=== PATIENT | male | born 1940 | race Caucasian/White ===

== ENCOUNTER 2016-05-11 11:59 | Emergency (ER) | payer MEDICARE, BC ==
[2016-05-11 12:05] VITALS: BP 145/77
--- NOTE | 2016-05-11 14:47 | ED ---
Lower Extremity - HPI Summary HPI Summary: 75 M presents with right heel pain and swelling since this morning. He states that he had a fracture many years ago and he often gets swelling and pain in his foot that is relieved with a cortisone shot. The last episode when that occurs was 5 years ago. He states he was on her feet more this weekend. He denies any trauma to the area. He denies any numbness or tingling. He is not on any blood thinners and does not have a history of clots. He denies any history of gout. He denies any fever, spreading redness, pus, or calf pain. - History of Current Complaint Chief Complaint: EDExtremityLower Stated Complaint: RIGHT FOOT INJURY Time Seen by Provider: 05/11/16 14:39 Pain Intensity: 6 - Allergies/Home Medications Allergies/Adverse Reactions: Allergies Allergy/AdvReac Type Severity Reaction Status Date / Time No Known Allergies Allergy Verified 05/11/16 12:04 PMH/Surg Hx/FS Hx/Imm Hx Endocrine/Hematology History: Denies: Hx Anticoagulant Therapy Cardiovascular History: Reports: Hx Hypertension Infectious Disease History: No Infectious Disease History: Denies: Traveled Outside the [place] in Last 30 Days - Family History Known Family History: Positive: Hypertension - Social History Alcohol Use: Occasionally Substance Use Type: Reports: None Smoking Status (MU): Unknown if Ever Smoked Review of Systems Negative: Fever Negative: Chest Pain Negative: Shortness Of Breath Positive: Myalgia - right heel pain All Other Systems Reviewed And Are Negative: Yes Physical Exam Triage Information Reviewed: Yes Vital Signs On Initial Exam: Initial Vitals Temp Pulse Resp BP Pulse Ox 98.0 F 79 15 145/77 100 05/11/16 12:01 05/11/16 12:01 05/11/16 12:01 05/11/16 12:01 05/11/16 12:01 Vital Signs Reviewed: Yes Skin: Positive: Warm Head/Face: Positive: Normal Head/Face Inspection Eyes: Positive: Normal, Conjunctiva Clear Respiratory/Lung Sounds: Positive: Clear to Auscultation, Breath Sounds Present Cardiovascular: Positive: Normal, RRR Musculoskeletal: Positive: Strength/ROM Intact - of right toes, ankle, Edema Right - foot present, Other - no erythema, capillary refill <2 secs, sensation grossly intact, tender to palpation over heel, good pulses Diagnostics - Vital Signs Vital Signs Temp Pulse Resp BP Pulse Ox 05/11/16 12:01 98.0 F 79 15 145/77 100 - Laboratory Lab Statement: Any lab studies that have been ordered have been reviewed, and results considered in the medical decision making process. Lower Extremity Course/Dx - Course Course Of Treatment: 75 M presents with right heel pain since this morning. He states he had a fracture years ago and when he uses his foot too much he gets well. No sign of cellulitis, septic arthritis, does not have calf pain so do not suspect DVT, no history of gout, has full ROM and no trauma, would like cortisone shot, explained that do not do coritsone shots out of the ER: can give referral to ortho and follow up with primary and patient became visible upset and got up and left, offered to give pain medication in meantime but patient refused. advised to use ibuprofen/tyenlol and ice and elevate - Diagnoses Differential Diagnosis/HQI/PQRI: Positive: Contusion, Fracture (Closed), Sprain , Strain Provider Diagnoses: Pain of right heel Discharge - Discharge Plan Condition: Good Disposition: HOME
== END 2016-05-11 14:53 | disposition home or self-care (01) ==
LOC: ED 11:59
DX: M79.671 Pain in right foot (principal)
CPT/HCPCS: 99282

== ENCOUNTER 2019-12-06 14:51 | Inpatient (IN) ==
[2019-12-06] MEDS ORDERED: Ondansetron 4 mg VIAL 2 MG/ML 2 ml VIAL IV PRN (15:46)
[2019-12-06 16:40] LABS: ABS Eosinophils 0.1 10^3/ul (0-0.6); ABS Lymphocytes 0.9 10^3/ul (1.0-4.8); ABS Monocytes 0.6 10^3/ul (0-0.8); ABS Neutrophils 3.8 10^3/ul (1.5-7.7); Eosinophil % 1.1 %; Hematocrit 40 % (42-52); Hemoglobin 13.6 g/dL (14.0-18.0); Lymphocyte % 16.6 %; Mean Corpuscular HGB Conc 34 g/dL (31-36); Mean Corpuscular Hemoglobin 31 pg (27-31); Mean Corpuscular Volume 91 fL (80-94); Mean Platelet Volume 7.2 fL (7.4-10.4); Platelet Count 179 10^3/uL (150-450); Red Blood Count 4.38 10^6 /uL (4.18-5.48); Red Cell Distribution Width 16 % (10-15); White Blood Count 5.4 10^3/uL (3.5-10.8)
[2019-12-06 16:51] LABS: Albumin 3.6 g/dL (3.2-5.2); Potassium 3.6 mmol/L (3.5-5.0); Total Bilirubin 0.8 mg/dL (0.2-1.0)
[2019-12-06 16:57] LABS: C Reactive Protein 106.53 mg/L (<8.01); EGFR African American 67.1 (>60); EGFR Non-African American 55.4 (>60); Globulin 3.7 g/dL (2-4); Total Protein 7.3 g/dL (6.4-8.9)
[2019-12-06] MEDS ORDERED: Iodixanol (CONTRAST) 320 MG/ML 100 ML SDV IV ONE (17:02)
[2019-12-06] MEDS: Enoxaparin 40 MG/0.4 ML SYR SUBCUT SCH (18:34)
[2019-12-06 19:53] LABS: Urine Appearance Clear; Urine Bilirubin Negative (Negative); Urine Blood 2+ (Negative); Urine Color Yellow; Urine Glucose Negative (Negative); Urine Ketones Negative (Negative); Urine Nitrite Negative (Negative); Urine Protein 1+(30 mg/dL) (Negative); Urine Urobilinogen Negative (Negative)
[2019-12-06 20:12] LABS: Urine Bacteria Absent (Absent); Urine Red Blood Cell 1+(3-5/hpf) (Absent); Urine White Blood Cell Trace(0-5/hpf) (Absent)
[2019-12-06] MEDS: Ampicillin ADVAN 2 GM in NS 0.9% 100 ml BAG 100 ML IVPB SCH (20:13)
[2019-12-06 20:40] LABS: Urine Specific Gravity > 1.059 (1.010-1.030)
[2019-12-07] MEDS: Ampicillin ADVAN 2 GM in NS 0.9% 100 ml BAG 100 ML IVPB SCH ×5 (01:00→23:40)
[2019-12-07] MEDS ORDERED: Ampicillin ADVAN 2 GM in NS 0.9% 100 ml BAG 100 ML IVPB SCH ×2 (06:00→09:30)
[2019-12-07 09:13] LABS: Hematocrit 35 % (42-52); Hemoglobin 12.3 g/dL (14.0-18.0); Mean Corpuscular HGB Conc 35 g/dL (31-36); Mean Corpuscular Hemoglobin 31 pg (27-31); Mean Corpuscular Volume 90 fL (80-94); Mean Platelet Volume 7.3 fL (7.4-10.4); Platelet Count 149 10^3/uL (150-450); Red Blood Count 3.93 10^6 /uL (4.18-5.48); Red Cell Distribution Width 16 % (10-15); White Blood Count 5.9 10^3/uL (3.5-10.8)
[2019-12-07 09:27] LABS: BUN/Creatinine Ratio 15.9 (8-20); C Reactive Protein 90.86 mg/L (<8.01); Calcium 8.5 mg/dL (8.6-10.3); EGFR African American 75.4 (>60); EGFR Non-African American 62.3 (>60); Magnesium 1.9 mg/dL (1.9-2.7); Potassium 4.1 mmol/L (3.5-5.0)
[2019-12-07 10:32] LABS: ABS Eosinophils 0.1 10^3/ul (0-0.6); ABS Lymphocytes 1.1 10^3/ul (1.0-4.8); ABS Monocytes 0.9 10^3/ul (0-0.8); ABS Neutrophils 3.8 10^3/ul (1.5-7.7); Eosinophil % 1.8 %; Lymphocyte % 18.1 %
[2019-12-07] MEDS ORDERED: fentaNYL 100 mcg/2 ml 50 MCG/ML VIAL ONE (13:04)
[2019-12-07] MEDS ORDERED: Midazolam 5 mg/5 ml VIAL 1 mg/ml 5 ml VIAL (5 mg) ONE (13:04)
[2019-12-07] MEDS ORDERED: Flumazenil 0.5 mg/5 ml 0.1 MG/ML 5 ml VIAL ONE (13:05)
[2019-12-07] MEDS ORDERED: Naloxone 0.4 mg VIAL 0.4 mg/ml 1 ml VIAL ONE (13:05)
[2019-12-07] MEDS: Enoxaparin 40 MG/0.4 ML SYR SUBCUT SCH (15:48)
[2019-12-07] MEDS ORDERED: cefTRIAXone 2 GM ADDV.VIAL 2 GM in NS 0.9% 100 ml BAG 100 ML IV SCH (20:00)
[2019-12-07] MEDS: cefTRIAXone 1 gm/50 mL NS BAG 1 GM/50 ML BAG IVPB SCH (20:32)
[2019-12-08] MEDS: Ampicillin ADVAN 2 GM in NS 0.9% 100 ml BAG 100 ML IVPB SCH ×5 (04:03→20:00)
[2019-12-08 06:00] LABS: ABS Basophils 0.1 10^3/ul (0-0.2); ABS Eosinophils 0.2 10^3/ul (0-0.6); ABS Lymphocytes 1.3 10^3/ul (1.0-4.8); ABS Monocytes 0.7 10^3/ul (0-0.8); ABS Neutrophils 3.5 10^3/ul (1.5-7.7); Eosinophil % 2.8 %; Hematocrit 36 % (42-52); Hemoglobin 12.3 g/dL (14.0-18.0); Lymphocyte % 22.3 %; Mean Corpuscular HGB Conc 35 g/dL (31-36); Mean Corpuscular Hemoglobin 31 pg (27-31); Mean Corpuscular Volume 89 fL (80-94); Mean Platelet Volume 7.4 fL (7.4-10.4); Nucleated Red Blood Cells % 0.1; Platelet Count 161 10^3/uL (150-450); Red Cell Distribution Width 16 % (10-15); White Blood Count 5.6 10^3/uL (3.5-10.8)
[2019-12-08 06:16] LABS: BUN/Creatinine Ratio 16.2 (8-20); Calcium 8.6 mg/dL (8.6-10.3); EGFR African American 87.8 (>60); EGFR Non-African American 72.6 (>60); Potassium 3.6 mmol/L (3.5-5.0)
[2019-12-08] MEDS: cefTRIAXone 1 gm/50 mL NS BAG 1 GM/50 ML BAG IVPB SCH (08:12)
[2019-12-08] MEDS: Enoxaparin 40 MG/0.4 ML SYR SUBCUT SCH (16:46)
[2019-12-08] MEDS: cefTRIAXone 2 GM ADDV.VIAL 2 GM in NS 0.9% 100 ml BAG 100 ML IV SCH (22:34)
[2019-12-09] MEDS: Ampicillin ADVAN 2 GM in NS 0.9% 100 ml BAG 100 ML IVPB SCH ×5 (01:23→16:38)
[2019-12-09 06:59] LABS: ABS Eosinophils 0.1 10^3/ul (0-0.6); ABS Lymphocytes 0.9 10^3/ul (1.0-4.8); ABS Monocytes 0.6 10^3/ul (0-0.8); ABS Neutrophils 5.7 10^3/ul (1.5-7.7); Eosinophil % 1.8 %; Hematocrit 35 % (42-52); Hemoglobin 12.3 g/dL (14.0-18.0); Mean Corpuscular HGB Conc 36 g/dL (31-36); Mean Corpuscular Hemoglobin 32 pg (27-31); Mean Corpuscular Volume 89 fL (80-94); Mean Platelet Volume 7.4 fL (7.4-10.4); Platelet Count 179 10^3/uL (150-450); Red Blood Count 3.89 10^6 /uL (4.18-5.48); Red Cell Distribution Width 16 % (10-15); White Blood Count 7.4 10^3/uL (3.5-10.8)
[2019-12-09 07:19] LABS: BUN/Creatinine Ratio 14.5 (8-20); Calcium 8.8 mg/dL (8.6-10.3); EGFR African American 72.4 (>60); EGFR Non-African American 59.8 (>60); Potassium 3.9 mmol/L (3.5-5.0)
[2019-12-09] MEDS: cefTRIAXone 2 GM ADDV.VIAL 2 GM in NS 0.9% 100 ml BAG 100 ML IV SCH (09:34)
[2019-12-09 16:13] VITALS: BP 119/77
[2019-12-09] MEDS: Enoxaparin 40 MG/0.4 ML SYR SUBCUT SCH (16:42)
== END 2019-12-09 18:30 | disposition swing bed (61) | DRG 288 ==
LOC: ED 14:51 → MED 15:46
PROVIDERS: ADMIT Internal Medicine; ATTEND Internal Medicine

== ENCOUNTER 2019-12-09 18:19 | Inpatient (IN) ==
[2019-12-09] MEDS ORDERED: Ondansetron 4 mg VIAL 2 MG/ML 2 ml VIAL IV PRN (19:19)
[2019-12-09] MEDS: Ampicillin ADVAN 2 GM in NS 0.9% 100 ml BAG 100 ML IVPB SCH (20:31)
[2019-12-09] MEDS: cefTRIAXone 2 GM ADDV.VIAL 2 GM in NS 0.9% 100 ml BAG 100 ML IV SCH (22:24)
[2019-12-09] MEDS: Mometasone 220 MCG MDI INH SCH (23:27)
[2019-12-10] MEDS: Ampicillin ADVAN 2 GM in NS 0.9% 100 ml BAG 100 ML IVPB SCH ×6 (01:07→21:33)
[2019-12-10] MEDS: cefTRIAXone 2 GM ADDV.VIAL 2 GM in NS 0.9% 100 ml BAG 100 ML IV SCH ×2 (10:42→22:47)
[2019-12-10] MEDS: Enoxaparin 40 MG/0.4 ML SYR SUBCUT SCH (16:41)
[2019-12-10] MEDS: Mometasone 220 MCG MDI INH SCH (17:21)
[2019-12-11] MEDS: Ampicillin ADVAN 2 GM in NS 0.9% 100 ml BAG 100 ML IVPB SCH ×6 (01:23→20:48)
[2019-12-11] MEDS: cefTRIAXone 2 GM ADDV.VIAL 2 GM in NS 0.9% 100 ml BAG 100 ML IV SCH ×2 (09:37→21:36)
[2019-12-11] MEDS: Enoxaparin 40 MG/0.4 ML SYR SUBCUT SCH (17:02)
[2019-12-11] MEDS: Mometasone 220 MCG MDI INH SCH (19:46)
[2019-12-12] MEDS: Ampicillin ADVAN 2 GM in NS 0.9% 100 ml BAG 100 ML IVPB SCH ×6 (00:36→21:19)
[2019-12-12] MEDS: cefTRIAXone 2 GM ADDV.VIAL 2 GM in NS 0.9% 100 ml BAG 100 ML IV SCH ×2 (10:20→21:55)
[2019-12-12] MEDS: Enoxaparin 40 MG/0.4 ML SYR SUBCUT SCH (17:51)
[2019-12-12] MEDS: Mometasone 220 MCG MDI INH SCH (19:38)
[2019-12-13] MEDS: Ampicillin ADVAN 2 GM in NS 0.9% 100 ml BAG 100 ML IVPB SCH ×6 (00:58→21:42)
[2019-12-13 06:37] LABS: ABS Eosinophils 0.2 10^3/ul (0-0.6); ABS Lymphocytes 1.4 10^3/ul (1.0-4.8); ABS Monocytes 0.6 10^3/ul (0-0.8); ABS Neutrophils 3.6 10^3/ul (1.5-7.7); Eosinophil % 3.3 %; Hematocrit 34 % (42-52); Hemoglobin 11.9 g/dL (14.0-18.0); Lymphocyte % 23.9 %; Mean Corpuscular HGB Conc 35 g/dL (31-36); Mean Corpuscular Hemoglobin 31 pg (27-31); Mean Corpuscular Volume 89 fL (80-94); Mean Platelet Volume 7.3 fL (7.4-10.4); Platelet Count 227 10^3/uL (150-450); Red Blood Count 3.81 10^6 /uL (4.18-5.48); Red Cell Distribution Width 16 % (10-15); White Blood Count 5.8 10^3/uL (3.5-10.8)
[2019-12-13 06:57] LABS: Albumin 3.2 g/dL (3.2-5.2); Albumin/Globulin Ratio 1.1 (1-3); C Reactive Protein 10.65 mg/L (<8.01); Calcium 8.9 mg/dL (8.6-10.3); EGFR African American 75.4 (>60); EGFR Non-African American 62.3 (>60); Potassium 3.8 mmol/L (3.5-5.0); Total Bilirubin 0.3 mg/dL (0.2-1.0); Total Protein 6.2 g/dL (6.4-8.9)
[2019-12-13] MEDS: cefTRIAXone 2 GM ADDV.VIAL 2 GM in NS 0.9% 100 ml BAG 100 ML IV SCH ×2 (11:00→22:45)
[2019-12-13] MEDS: Enoxaparin 40 MG/0.4 ML SYR SUBCUT SCH (16:37)
[2019-12-13] MEDS: Mometasone 220 MCG MDI INH SCH (20:42)
[2019-12-14] MEDS: Ampicillin ADVAN 2 GM in NS 0.9% 100 ml BAG 100 ML IVPB SCH ×6 (01:14→20:56)
[2019-12-14] MEDS: cefTRIAXone 2 GM ADDV.VIAL 2 GM in NS 0.9% 100 ml BAG 100 ML IV SCH ×2 (13:02→22:16)
[2019-12-14] MEDS: Enoxaparin 40 MG/0.4 ML SYR SUBCUT SCH (18:05)
[2019-12-14] MEDS: Mometasone 220 MCG MDI INH SCH (20:54)
[2019-12-15] MEDS: Ampicillin ADVAN 2 GM in NS 0.9% 100 ml BAG 100 ML IVPB SCH ×6 (01:13→21:00)
[2019-12-15] MEDS: cefTRIAXone 2 GM ADDV.VIAL 2 GM in NS 0.9% 100 ml BAG 100 ML IV SCH ×2 (09:44→22:43)
[2019-12-15] MEDS: Enoxaparin 40 MG/0.4 ML SYR SUBCUT SCH (17:56)
[2019-12-15] MEDS: Mometasone 220 MCG MDI INH SCH (19:54)
[2019-12-16] MEDS: Ampicillin ADVAN 2 GM in NS 0.9% 100 ml BAG 100 ML IVPB SCH ×6 (01:27→20:48)
[2019-12-16] MEDS: cefTRIAXone 2 GM ADDV.VIAL 2 GM in NS 0.9% 100 ml BAG 100 ML IV SCH ×2 (09:45→22:37)
[2019-12-16] MEDS: Enoxaparin 40 MG/0.4 ML SYR SUBCUT SCH (17:04)
[2019-12-16] MEDS: Mometasone 220 MCG MDI INH SCH (19:26)
[2019-12-17] MEDS: Ampicillin ADVAN 2 GM in NS 0.9% 100 ml BAG 100 ML IVPB SCH ×6 (01:20→20:57)
[2019-12-17] MEDS: cefTRIAXone 2 GM ADDV.VIAL 2 GM in NS 0.9% 100 ml BAG 100 ML IV SCH ×2 (09:45→21:42)
[2019-12-17] MEDS: Enoxaparin 40 MG/0.4 ML SYR SUBCUT SCH (17:23)
[2019-12-17] MEDS: Mometasone 220 MCG MDI INH SCH (19:10)
[2019-12-18] MEDS: Ampicillin ADVAN 2 GM in NS 0.9% 100 ml BAG 100 ML IVPB SCH ×6 (00:42→21:03)
[2019-12-18] MEDS: cefTRIAXone 2 GM ADDV.VIAL 2 GM in NS 0.9% 100 ml BAG 100 ML IV SCH ×2 (10:06→21:59)
[2019-12-18] MEDS: Enoxaparin 40 MG/0.4 ML SYR SUBCUT SCH (16:49)
[2019-12-18] MEDS: Mometasone 220 MCG MDI INH SCH (19:27)
[2019-12-19] MEDS: Ampicillin ADVAN 2 GM in NS 0.9% 100 ml BAG 100 ML IVPB SCH ×6 (01:16→21:05)
[2019-12-19] MEDS: cefTRIAXone 2 GM ADDV.VIAL 2 GM in NS 0.9% 100 ml BAG 100 ML IV SCH ×2 (10:26→22:00)
[2019-12-19] MEDS: Enoxaparin 40 MG/0.4 ML SYR SUBCUT SCH (17:20)
[2019-12-19] MEDS: Mometasone 220 MCG MDI INH SCH (19:26)
[2019-12-20] MEDS: Ampicillin ADVAN 2 GM in NS 0.9% 100 ml BAG 100 ML IVPB SCH ×6 (01:38→21:12)
[2019-12-20 06:26] LABS: ABS Basophils 0.1 10^3/ul (0-0.2); ABS Eosinophils 0.1 10^3/ul (0-0.6); ABS Lymphocytes 0.8 10^3/ul (1.0-4.8); ABS Monocytes 0.6 10^3/ul (0-0.8); Eosinophil % 1.4 %; Hematocrit 34 % (42-52); Hemoglobin 11.8 g/dL (14.0-18.0); Lymphocyte % 11.7 %; Mean Corpuscular HGB Conc 35 g/dL (31-36); Mean Corpuscular Hemoglobin 31 pg (27-31); Mean Corpuscular Volume 90 fL (80-94); Mean Platelet Volume 7.2 fL (7.4-10.4); Platelet Count 233 10^3/uL (150-450); Red Cell Distribution Width 17 % (10-15); White Blood Count 6.5 10^3/uL (3.5-10.8)
[2019-12-20 06:46] LABS: Albumin 3.2 g/dL (3.2-5.2); BUN/Creatinine Ratio 12.7 (8-20); C Reactive Protein 18.51 mg/L (<8.01); Calcium 8.8 mg/dL (8.6-10.3); EGFR African American 77.7 (>60); EGFR Non-African American 64.2 (>60); Globulin 3.2 g/dL (2-4); Potassium 3.8 mmol/L (3.5-5.0); Total Bilirubin 0.6 mg/dL (0.2-1.0); Total Protein 6.4 g/dL (6.4-8.9)
[2019-12-20] MEDS: cefTRIAXone 2 GM ADDV.VIAL 2 GM in NS 0.9% 100 ml BAG 100 ML IV SCH ×2 (09:33→22:05)
[2019-12-20] MEDS: Enoxaparin 40 MG/0.4 ML SYR SUBCUT SCH (16:29)
[2019-12-20] MEDS: Mometasone 220 MCG MDI INH SCH (19:13)
[2019-12-21] MEDS: Ampicillin ADVAN 2 GM in NS 0.9% 100 ml BAG 100 ML IVPB SCH ×6 (01:28→22:09)
[2019-12-21] MEDS: cefTRIAXone 2 GM ADDV.VIAL 2 GM in NS 0.9% 100 ml BAG 100 ML IV SCH ×2 (10:17→21:09)
[2019-12-21] MEDS: Enoxaparin 40 MG/0.4 ML SYR SUBCUT SCH (16:09)
[2019-12-21] MEDS: Mometasone 220 MCG MDI INH SCH (19:27)
[2019-12-22] MEDS: Ampicillin ADVAN 2 GM in NS 0.9% 100 ml BAG 100 ML IVPB SCH ×6 (00:39→20:17)
[2019-12-22] MEDS: cefTRIAXone 2 GM ADDV.VIAL 2 GM in NS 0.9% 100 ml BAG 100 ML IV SCH ×2 (10:35→21:12)
[2019-12-22] MEDS: Enoxaparin 40 MG/0.4 ML SYR SUBCUT SCH (17:43)
[2019-12-22] MEDS: Mometasone 220 MCG MDI INH SCH (19:54)
[2019-12-23] MEDS: Ampicillin ADVAN 2 GM in NS 0.9% 100 ml BAG 100 ML IVPB SCH ×6 (00:45→21:16)
[2019-12-23] MEDS: cefTRIAXone 2 GM ADDV.VIAL 2 GM in NS 0.9% 100 ml BAG 100 ML IV SCH ×2 (08:32→21:55)
[2019-12-23] MEDS: Enoxaparin 40 MG/0.4 ML SYR SUBCUT SCH (17:36)
[2019-12-23] MEDS: Mometasone 220 MCG MDI INH SCH (19:25)
[2019-12-24] MEDS: Ampicillin ADVAN 2 GM in NS 0.9% 100 ml BAG 100 ML IVPB SCH ×6 (01:03→21:08)
[2019-12-24] MEDS: cefTRIAXone 2 GM ADDV.VIAL 2 GM in NS 0.9% 100 ml BAG 100 ML IV SCH ×2 (10:04→22:03)
[2019-12-24] MEDS: Enoxaparin 40 MG/0.4 ML SYR SUBCUT SCH (17:08)
[2019-12-24] MEDS: Mometasone 220 MCG MDI INH SCH (19:41)
[2019-12-25] MEDS: Ampicillin ADVAN 2 GM in NS 0.9% 100 ml BAG 100 ML IVPB SCH ×6 (01:13→20:59)
[2019-12-25] MEDS: cefTRIAXone 2 GM ADDV.VIAL 2 GM in NS 0.9% 100 ml BAG 100 ML IV SCH ×2 (10:14→21:44)
[2019-12-25] MEDS: Enoxaparin 40 MG/0.4 ML SYR SUBCUT SCH (17:05)
[2019-12-25] MEDS: Mometasone 220 MCG MDI INH SCH (19:15)
[2019-12-26] MEDS: Ampicillin ADVAN 2 GM in NS 0.9% 100 ml BAG 100 ML IVPB SCH ×6 (01:28→21:54)
[2019-12-26] MEDS: cefTRIAXone 2 GM ADDV.VIAL 2 GM in NS 0.9% 100 ml BAG 100 ML IV SCH ×2 (09:53→22:32)
[2019-12-26] MEDS: Enoxaparin 40 MG/0.4 ML SYR SUBCUT SCH (17:36)
[2019-12-26] MEDS: Mometasone 220 MCG MDI INH SCH (19:32)
[2019-12-27] MEDS: Ampicillin ADVAN 2 GM in NS 0.9% 100 ml BAG 100 ML IVPB SCH ×6 (01:15→21:25)
[2019-12-27 06:06] LABS: ABS Eosinophils 0.1 10^3/ul (0-0.6); ABS Lymphocytes 0.8 10^3/ul (1.0-4.8); ABS Monocytes 0.6 10^3/ul (0-0.8); Eosinophil % 2.8 %; Hematocrit 34 % (42-52); Lymphocyte % 17.4 %; Mean Corpuscular HGB Conc 35 g/dL (31-36); Mean Corpuscular Hemoglobin 31 pg (27-31); Mean Corpuscular Volume 90 fL (80-94); Mean Platelet Volume 7.5 fL (7.4-10.4); Platelet Count 202 10^3/uL (150-450); Red Cell Distribution Width 16 % (10-15); White Blood Count 4.5 10^3/uL (3.5-10.8)
[2019-12-27 06:22] LABS: Albumin 3.3 g/dL (3.2-5.2); Albumin/Globulin Ratio 1.1 (1-3); BUN/Creatinine Ratio 16.3 (8-20); C Reactive Protein 14.8 mg/L (<8.01); EGFR African American 82.9 (>60); EGFR Non-African American 68.5 (>60); Globulin 2.9 g/dL (2-4); Potassium 3.9 mmol/L (3.5-5.0); Total Bilirubin 0.4 mg/dL (0.2-1.0); Total Protein 6.2 g/dL (6.4-8.9)
[2019-12-27] MEDS: cefTRIAXone 2 GM ADDV.VIAL 2 GM in NS 0.9% 100 ml BAG 100 ML IV SCH ×2 (09:12→22:04)
[2019-12-27] MEDS: Enoxaparin 40 MG/0.4 ML SYR SUBCUT SCH (17:20)
[2019-12-27] MEDS: Mometasone 220 MCG MDI INH SCH (19:13)
[2019-12-28] MEDS: Ampicillin ADVAN 2 GM in NS 0.9% 100 ml BAG 100 ML IVPB SCH ×6 (01:10→21:11)
[2019-12-28] MEDS: cefTRIAXone 2 GM ADDV.VIAL 2 GM in NS 0.9% 100 ml BAG 100 ML IV SCH ×2 (08:25→22:21)
[2019-12-28] MEDS: Enoxaparin 40 MG/0.4 ML SYR SUBCUT SCH (17:00)
[2019-12-28] MEDS: Mometasone 220 MCG MDI INH SCH (19:26)
[2019-12-29] MEDS: Ampicillin ADVAN 2 GM in NS 0.9% 100 ml BAG 100 ML IVPB SCH ×6 (01:47→20:59)
[2019-12-29] MEDS: cefTRIAXone 2 GM ADDV.VIAL 2 GM in NS 0.9% 100 ml BAG 100 ML IV SCH ×2 (09:39→21:56)
[2019-12-29] MEDS: Enoxaparin 40 MG/0.4 ML SYR SUBCUT SCH (17:32)
[2019-12-29] MEDS: Mometasone 220 MCG MDI INH SCH (20:16)
[2019-12-30] MEDS: Ampicillin ADVAN 2 GM in NS 0.9% 100 ml BAG 100 ML IVPB SCH ×6 (01:02→21:03)
[2019-12-30] MEDS: cefTRIAXone 2 GM ADDV.VIAL 2 GM in NS 0.9% 100 ml BAG 100 ML IV SCH ×2 (10:10→22:21)
[2019-12-30] MEDS: Enoxaparin 40 MG/0.4 ML SYR SUBCUT SCH (16:33)
[2019-12-30] MEDS: Mometasone 220 MCG MDI INH SCH (20:20)
[2019-12-31] MEDS: Ampicillin ADVAN 2 GM in NS 0.9% 100 ml BAG 100 ML IVPB SCH ×6 (01:07→21:16)
[2019-12-31] MEDS: cefTRIAXone 2 GM ADDV.VIAL 2 GM in NS 0.9% 100 ml BAG 100 ML IV SCH ×2 (10:01→22:24)
[2019-12-31] MEDS: Enoxaparin 40 MG/0.4 ML SYR SUBCUT SCH (17:05)
[2019-12-31] MEDS: Mometasone 220 MCG MDI INH SCH (19:47)
[2020-01-01] MEDS: Ampicillin ADVAN 2 GM in NS 0.9% 100 ml BAG 100 ML IVPB SCH ×6 (01:38→21:05)
[2020-01-01] MEDS: cefTRIAXone 2 GM ADDV.VIAL 2 GM in NS 0.9% 100 ml BAG 100 ML IV SCH ×2 (09:53→22:10)
[2020-01-01] MEDS: Enoxaparin 40 MG/0.4 ML SYR SUBCUT SCH (16:36)
[2020-01-01] MEDS: Mometasone 220 MCG MDI INH SCH (19:22)
[2020-01-02] MEDS: Ampicillin ADVAN 2 GM in NS 0.9% 100 ml BAG 100 ML IVPB SCH ×6 (01:01→21:19)
[2020-01-02] MEDS: cefTRIAXone 2 GM ADDV.VIAL 2 GM in NS 0.9% 100 ml BAG 100 ML IV SCH ×2 (09:50→22:08)
[2020-01-02] MEDS: Enoxaparin 40 MG/0.4 ML SYR SUBCUT SCH (17:15)
[2020-01-02] MEDS: Mometasone 220 MCG MDI INH SCH (19:11)
[2020-01-03] MEDS: Ampicillin ADVAN 2 GM in NS 0.9% 100 ml BAG 100 ML IVPB SCH ×6 (01:28→21:05)
[2020-01-03 05:40] LABS: ABS Basophils 0.1 10^3/ul (0-0.2); ABS Eosinophils 0.2 10^3/ul (0-0.6); ABS Lymphocytes 1.3 10^3/ul (1.0-4.8); ABS Monocytes 0.7 10^3/ul (0-0.8); ABS Neutrophils 2.9 10^3/ul (1.5-7.7); Eosinophil % 4.2 %; Hematocrit 35 % (42-52); Hemoglobin 12.2 g/dL (14.0-18.0); Lymphocyte % 24.4 %; Mean Corpuscular HGB Conc 35 g/dL (31-36); Mean Corpuscular Hemoglobin 32 pg (27-31); Mean Corpuscular Volume 89 fL (80-94); Mean Platelet Volume 7.4 fL (7.4-10.4); Nucleated Red Blood Cells % 0.1; Platelet Count 200 10^3/uL (150-450); Red Blood Count 3.87 10^6 /uL (4.18-5.48); Red Cell Distribution Width 15 % (10-15); White Blood Count 5.1 10^3/uL (3.5-10.8)
[2020-01-03 05:59] LABS: Albumin 3.4 g/dL (3.2-5.2); Albumin/Globulin Ratio 1.3 (1-3); BUN/Creatinine Ratio 16.4 (8-20); C Reactive Protein 14.84 mg/L (<8.01); Calcium 9.3 mg/dL (8.6-10.3); EGFR African American 77.7 (>60); EGFR Non-African American 64.2 (>60); Globulin 2.7 g/dL (2-4); Potassium 3.9 mmol/L (3.5-5.0); Total Bilirubin 0.3 mg/dL (0.2-1.0); Total Protein 6.1 g/dL (6.4-8.9)
[2020-01-03] MEDS: cefTRIAXone 2 GM ADDV.VIAL 2 GM in NS 0.9% 100 ml BAG 100 ML IV SCH ×2 (09:25→21:42)
[2020-01-03] MEDS: Enoxaparin 40 MG/0.4 ML SYR SUBCUT SCH (15:26)
[2020-01-03] MEDS: Mometasone 220 MCG MDI INH SCH (19:08)
[2020-01-04] MEDS: Ampicillin ADVAN 2 GM in NS 0.9% 100 ml BAG 100 ML IVPB SCH ×6 (01:06→20:49)
[2020-01-04] MEDS: cefTRIAXone 2 GM ADDV.VIAL 2 GM in NS 0.9% 100 ml BAG 100 ML IV SCH ×2 (09:12→21:42)
[2020-01-04] MEDS: Enoxaparin 40 MG/0.4 ML SYR SUBCUT SCH (16:06)
[2020-01-04] MEDS: Mometasone 220 MCG MDI INH SCH (19:16)
[2020-01-05] MEDS: Ampicillin ADVAN 2 GM in NS 0.9% 100 ml BAG 100 ML IVPB SCH ×6 (00:42→21:02)
[2020-01-05] MEDS: cefTRIAXone 2 GM ADDV.VIAL 2 GM in NS 0.9% 100 ml BAG 100 ML IV SCH ×2 (09:52→21:47)
[2020-01-05] MEDS: Enoxaparin 40 MG/0.4 ML SYR SUBCUT SCH (16:57)
[2020-01-05] MEDS: Mometasone 220 MCG MDI INH SCH (22:50)
[2020-01-06] MEDS: Ampicillin ADVAN 2 GM in NS 0.9% 100 ml BAG 100 ML IVPB SCH ×6 (01:41→22:00)
[2020-01-06] MEDS: cefTRIAXone 2 GM ADDV.VIAL 2 GM in NS 0.9% 100 ml BAG 100 ML IV SCH ×2 (09:42→22:46)
[2020-01-06] MEDS: Enoxaparin 40 MG/0.4 ML SYR SUBCUT SCH (17:56)
[2020-01-06] MEDS: Mometasone 220 MCG MDI INH SCH (19:04)
[2020-01-07] MEDS: Ampicillin ADVAN 2 GM in NS 0.9% 100 ml BAG 100 ML IVPB SCH ×6 (01:18→21:29)
[2020-01-07] MEDS: cefTRIAXone 2 GM ADDV.VIAL 2 GM in NS 0.9% 100 ml BAG 100 ML IV SCH ×2 (09:55→22:27)
[2020-01-07] MEDS: Enoxaparin 40 MG/0.4 ML SYR SUBCUT SCH (15:56)
[2020-01-07] MEDS: Mometasone 220 MCG MDI INH SCH (19:23)
[2020-01-08] MEDS: Ampicillin ADVAN 2 GM in NS 0.9% 100 ml BAG 100 ML IVPB SCH ×6 (01:22→21:36)
[2020-01-08] MEDS: cefTRIAXone 2 GM ADDV.VIAL 2 GM in NS 0.9% 100 ml BAG 100 ML IV SCH ×2 (09:38→23:18)
[2020-01-08] MEDS: Enoxaparin 40 MG/0.4 ML SYR SUBCUT SCH (16:43)
[2020-01-08] MEDS: Mometasone 220 MCG MDI INH SCH (19:48)
[2020-01-09] MEDS: Ampicillin ADVAN 2 GM in NS 0.9% 100 ml BAG 100 ML IVPB SCH ×6 (02:00→21:00)
[2020-01-09] MEDS: cefTRIAXone 2 GM ADDV.VIAL 2 GM in NS 0.9% 100 ml BAG 100 ML IV SCH ×3 (09:42→21:45)
[2020-01-09] MEDS: Enoxaparin 40 MG/0.4 ML SYR SUBCUT SCH (17:13)
[2020-01-09] MEDS: Mometasone 220 MCG MDI INH SCH (19:27)
[2020-01-10] MEDS: Ampicillin ADVAN 2 GM in NS 0.9% 100 ml BAG 100 ML IVPB SCH ×6 (00:42→20:52)
[2020-01-10 06:17] LABS: ABS Basophils 0.1 10^3/ul (0-0.2); ABS Eosinophils 0.1 10^3/ul (0-0.6); ABS Lymphocytes 1.2 10^3/ul (1.0-4.8); ABS Monocytes 0.7 10^3/ul (0-0.8); ABS Neutrophils 3.7 10^3/ul (1.5-7.7); Hematocrit 37 % (42-52); Lymphocyte % 21.3 %; Mean Corpuscular HGB Conc 36 g/dL (31-36); Mean Corpuscular Hemoglobin 32 pg (27-31); Mean Corpuscular Volume 90 fL (80-94); Mean Platelet Volume 7.3 fL (7.4-10.4); Platelet Count 259 10^3/uL (150-450); Red Blood Count 4.07 10^6 /uL (4.18-5.48); Red Cell Distribution Width 16 % (10-15); White Blood Count 5.8 10^3/uL (3.5-10.8)
[2020-01-10 06:41] LABS: Albumin 3.4 g/dL (3.2-5.2); Albumin/Globulin Ratio 1.2 (1-3); BUN/Creatinine Ratio 19.5 (8-20); C Reactive Protein 5.26 mg/L (<8.01); Calcium 8.9 mg/dL (8.6-10.3); EGFR African American 75.4 (>60); EGFR Non-African American 62.3 (>60); Globulin 2.9 g/dL (2-4); Total Bilirubin 0.3 mg/dL (0.2-1.0); Total Protein 6.3 g/dL (6.4-8.9)
[2020-01-10] MEDS: cefTRIAXone 2 GM ADDV.VIAL 2 GM in NS 0.9% 100 ml BAG 100 ML IV SCH ×2 (09:29→22:06)
[2020-01-10] MEDS: Enoxaparin 40 MG/0.4 ML SYR SUBCUT SCH (17:33)
[2020-01-10] MEDS: Mometasone 220 MCG MDI INH SCH (19:12)
[2020-01-10] MEDS ORDERED: Phenol 1.4% Throat Spray 177 ml BTL MT PRN (21:27)
[2020-01-11] MEDS: Ampicillin ADVAN 2 GM in NS 0.9% 100 ml BAG 100 ML IVPB SCH ×6 (01:17→20:51)
[2020-01-11] MEDS: cefTRIAXone 2 GM ADDV.VIAL 2 GM in NS 0.9% 100 ml BAG 100 ML IV SCH ×2 (10:15→21:46)
[2020-01-11] MEDS: Enoxaparin 40 MG/0.4 ML SYR SUBCUT SCH (16:36)
[2020-01-11] MEDS: Mometasone 220 MCG MDI INH SCH (19:16)
[2020-01-12] MEDS: Ampicillin ADVAN 2 GM in NS 0.9% 100 ml BAG 100 ML IVPB SCH ×6 (02:30→20:56)
[2020-01-12] MEDS: cefTRIAXone 2 GM ADDV.VIAL 2 GM in NS 0.9% 100 ml BAG 100 ML IV SCH ×2 (09:41→21:46)
[2020-01-12] MEDS: Enoxaparin 40 MG/0.4 ML SYR SUBCUT SCH (16:34)
[2020-01-12] MEDS: Mometasone 220 MCG MDI INH SCH (19:47)
[2020-01-13] MEDS: Ampicillin ADVAN 2 GM in NS 0.9% 100 ml BAG 100 ML IVPB SCH ×5 (01:25→16:48)
[2020-01-13] MEDS: cefTRIAXone 2 GM ADDV.VIAL 2 GM in NS 0.9% 100 ml BAG 100 ML IV SCH ×3 (08:31→20:10)
[2020-01-13] MEDS: Enoxaparin 40 MG/0.4 ML SYR SUBCUT SCH (16:48)
[2020-01-13] MEDS: Ampicillin ADVAN 2 GM in NS 0.9% 100 ML 100 ML IVPB SCH ×2 (19:30→23:59)
[2020-01-13] MEDS: Mometasone 220 MCG MDI INH SCH (19:48)
[2020-01-14] MEDS: Ampicillin ADVAN 2 GM in NS 0.9% 100 ML 100 ML IVPB SCH ×6 (04:13→23:34)
[2020-01-14] MEDS: cefTRIAXone 2 GM ADDV.VIAL 2 GM in NS 0.9% 100 ml BAG 100 ML IV SCH ×2 (08:48→20:49)
[2020-01-14] MEDS: Enoxaparin 40 MG/0.4 ML SYR SUBCUT SCH (15:38)
[2020-01-14] MEDS: Mometasone 220 MCG MDI INH SCH (19:43)
[2020-01-15] MEDS: Ampicillin ADVAN 2 GM in NS 0.9% 100 ML 100 ML IVPB SCH ×6 (03:38→23:45)
[2020-01-15] MEDS: cefTRIAXone 2 GM ADDV.VIAL 2 GM in NS 0.9% 100 ml BAG 100 ML IV SCH ×2 (08:59→21:27)
[2020-01-15] MEDS: Enoxaparin 40 MG/0.4 ML SYR SUBCUT SCH (15:46)
[2020-01-15] MEDS: Mometasone 220 MCG MDI INH SCH (19:46)
[2020-01-16] MEDS: Ampicillin ADVAN 2 GM in NS 0.9% 100 ML 100 ML IVPB SCH ×6 (04:09→23:52)
[2020-01-16] MEDS: cefTRIAXone 2 GM ADDV.VIAL 2 GM in NS 0.9% 100 ml BAG 100 ML IV SCH ×2 (08:31→21:13)
[2020-01-16] MEDS: Enoxaparin 40 MG/0.4 ML SYR SUBCUT SCH (16:15)
[2020-01-16] MEDS: Mometasone 220 MCG MDI INH SCH (19:29)
[2020-01-17] MEDS: Ampicillin ADVAN 2 GM in NS 0.9% 100 ML 100 ML IVPB SCH ×6 (03:44→23:09)
[2020-01-17] MEDS: cefTRIAXone 2 GM ADDV.VIAL 2 GM in NS 0.9% 100 ml BAG 100 ML IV SCH ×2 (08:29→21:40)
[2020-01-17 10:38] LABS: ABS Lymphocytes 1.2 10^3/ul (1.0-4.8); ABS Monocytes 0.6 10^3/ul (0-0.8); ABS Neutrophils 3.5 10^3/ul (1.5-7.7); Eosinophil % 0.3 %; Hematocrit 42 % (42-52); Lymphocyte % 21.5 %; Mean Corpuscular HGB Conc 34 g/dL (31-36); Mean Corpuscular Hemoglobin 31 pg (27-31); Mean Corpuscular Volume 90 fL (80-94); Mean Platelet Volume 7.7 fL (7.4-10.4); Nucleated Red Blood Cells % 0.1; Platelet Count 251 10^3/uL (150-450); Red Blood Count 4.58 10^6 /uL (4.18-5.48); Red Cell Distribution Width 15 % (10-15); White Blood Count 5.4 10^3/uL (3.5-10.8)
[2020-01-17 10:42] LABS: Albumin 3.9 g/dL (3.2-5.2); Albumin/Globulin Ratio 1.2 (1-3); BUN/Creatinine Ratio 14.7 (8-20); C Reactive Protein 6.4 mg/L (<8.01); Calcium 9.3 mg/dL (8.6-10.3); EGFR African American 78.6 (>60); EGFR Non-African American 64.9 (>60); Globulin 3.2 g/dL (2-4); Potassium 3.9 mmol/L (3.5-5.0); Total Bilirubin 0.4 mg/dL (0.2-1.0); Total Protein 7.1 g/dL (6.4-8.9)
[2020-01-17] MEDS: Enoxaparin 40 MG/0.4 ML SYR SUBCUT SCH (16:43)
[2020-01-17] MEDS: Mometasone 220 MCG MDI INH SCH (19:08)
[2020-01-18] MEDS: Ampicillin ADVAN 2 GM in NS 0.9% 100 ML 100 ML IVPB SCH ×6 (03:45→23:40)
[2020-01-18] MEDS: cefTRIAXone 2 GM ADDV.VIAL 2 GM in NS 0.9% 100 ml BAG 100 ML IV SCH (09:12)
[2020-01-18] MEDS: Enoxaparin 40 MG/0.4 ML SYR SUBCUT SCH (16:14)
[2020-01-18] MEDS: Mometasone 220 MCG MDI INH SCH (19:53)
[2020-01-19] MEDS: Ampicillin ADVAN 2 GM in NS 0.9% 100 ML 100 ML IVPB SCH ×6 (04:03→23:33)
[2020-01-19] MEDS: cefTRIAXone 2 GM ADDV.VIAL 2 GM in NS 0.9% 100 ml BAG 100 ML IV SCH ×2 (08:39→20:48)
[2020-01-19] MEDS ORDERED: Polyethylene Glycol 3350 17 GM PACKET PO PRN (09:27)
[2020-01-19] MEDS ORDERED: Senna TAB 8.6 mg TAB PO PRN (09:27)
[2020-01-19] MEDS ORDERED: Magnesium Hydroxide LIQ 30 ML UDC PO PRN (09:27)
[2020-01-19] MEDS: Enoxaparin 40 MG/0.4 ML SYR SUBCUT SCH (15:34)
[2020-01-19] MEDS: Mometasone 220 MCG MDI INH SCH (19:53)
[2020-01-20] MEDS: Ampicillin ADVAN 2 GM in NS 0.9% 100 ML 100 ML IVPB SCH ×2 (03:26→07:31)
[2020-01-20 07:36] VITALS: BP 152/80
[2020-01-20] MEDS: cefTRIAXone 2 GM ADDV.VIAL 2 GM in NS 0.9% 100 ml BAG 100 ML IV SCH (08:20)
== END 2020-01-20 11:00 | disposition home or self-care (01) | DRG 289 ==
LOC: MED 18:41
PROVIDERS: ADMIT Internal Medicine; ATTEND Internal Medicine